=== PATIENT | female | born 1975 ===

== ENCOUNTER 2016-12-06 09:18 | Emergency (ER) | payer OTHER ==
[2016-12-06 09:34] VITALS: O2SAT 98
[2016-12-06 12:01] LABS: BASO % 0.2 % (0.0-2.0); EOS # 0.1 K/uL (0.0-0.7); EOS % 1.1 % (0.0-4.0); HEMOGLOBIN 14.7 g/dL (12.0-16.0); LYMPH # 2.1 K/uL (1.0-4.3); LYMPH % 27.4 % (20.0-40.0); MEAN CORPUSCULAR HEMOGLOBIN 29.2 pg (27.0-31.0); MEAN CORPUSCULAR HGB CONC 33.9 g/dL (33.0-37.0); MEAN PLATELET VOLUME 9.2 fl (7.2-11.7); MONO # 0.6 K/uL (0.0-0.8); MONO % 7.8 % (0.0-10.0); NEUT # 4.9 K/uL (1.8-7.0); NEUT % 63.5 % (50.0-75.0); RBC 5.03 Mil/uL (3.80-5.20); RED CELL DISTRIBUTION WIDTH 13.5 % (11.5-14.5); WHITE BLOOD COUNT 7.7 K/uL (4.8-10.8)
[2016-12-06 12:05] LABS: SQUAMOUS EPITHIAL 4 /hpf (0-5); URINE BILIRUBIN NEGATIVE (NEGATIVE); URINE BLOOD NEGATIVE (NEGATIVE); URINE CLARITY SLIGHTY-CLOUDY (Clear); URINE COLOR YELLOW (YELLOW); URINE GLUCOSE (UA) NEG (Normal); URINE LEUKOCYTE ESTERASE TRACE Leu/uL (Negative); URINE NITRATE NEGATIVE (NEGATIVE); URINE PROTEIN NEGATIVE (NEGATIVE); URINE UROBILINOGEN 0.2-1.0 mg/dL (0.2-1.0)
--- NOTE | 2016-12-06 12:32 | ED PDOC ---
HPI: General Adult Time Seen by Provider: 12/06/16 10:03 Chief Complaint (Nursing): Abdominal Pain History Per: Patient Additional Complaint(s): Pt. states for the past year she's been having intermittent pelvic pain which resolves after taking Motrin. Pt. states this month she had her period 3 times but was only light bleeding. Normally she gets her period monthly lasting for only 4 days. Her LMP was "September." Denies N/V/D, abdominal pain, vaginal discharge, hx of anemia, weakness, dysuria, hematuria. Past Medical History Reviewed: Historical Data, Nursing Documentation, Vital Signs Vital Signs: Last Vital Signs Temp 98 F 12/06/16 16:13 Pulse 74 12/06/16 16:13 Resp 20 12/06/16 16:13 BP 100/70 12/06/16 16:13 Pulse Ox 98 12/06/16 16:13 - Family History Family History: States: No Known Family Hx - Allergies Allergies/Adverse Reactions: Allergies Allergy/AdvReac Type Severity Reaction Status Date / Time No Known Allergies Allergy Verified 12/06/16 09:31 Review of Systems ROS Statement: Except As Marked, All Systems Reviewed And Found Negative Genitourinary Female: Positive for: Pelvic Pain Physical Exam - Physical Exam Appears: Positive for: Well, Non-toxic, No Acute Distress Skin: Positive for: Normal Color, Warm. Negative for: Rash Eye Exam: Positive for: Normal appearance, EOMI, PERRL. Negative for: Scleral icterus Gastrointestinal/Abdominal: Positive for: Normal Exam, Bowel Sounds, Soft. Negative for: Tenderness Back: Positive for: Normal Inspection. Negative for: L CVA Tenderness, R CVA Tenderness Extremity: Positive for: Normal ROM Neurologic/Psych: Positive for: Alert, Oriented. Negative for: Aphasia, Facial Droop - Laboratory Results Result Diagrams: 12/06/16 11:54 12/06/16 11:54 Urine POC: Negative Urine dip results: Positive for: Blood (trace). Negative for: Leukocyte Esterase, Nitrate, Ketones, Glucose, Bilirubin, Protein - ECG O2 Sat by Pulse Oximetry: 98 - Progress ED Course And Treament: Labs ordered. Pelvic US ordered. Toradol 15mg IV ordered. Pelvic US: normal Pelvic exam: flesh colored protrusion coming from L intravaginal wall extending outward; cervix closed and visualized completely without prolapse; no discharge , bleeding, CMT. [facility] cytology technologist present as human resources recruiter during pelvic exam. Upon further questioning, pt. states she's had this mass for the past 20 years and has seen a ARTIST MODEL for it but was told it cannot be removed. This was done through [employer] Analyst Developer [id number]. Pt. instructed to f[facility]u with [facility]. Disposition - Clinical Impression Clinical Impression: Vaginal mass, Dysmenorrhea - Patient ED Disposition Is Patient to be Admitted: No - Disposition Referrals: [facility] [Outside] [facility] [Outside] Disposition: Routine/Home Disposition Time: 17:00 Condition: STABLE Instructions: Dysmenorrhea (ED) Print Language: IRANIAN
[2016-12-06 12:34] LABS: ALB/GLOB RATIO 1.3 (1.0-2.1); ALBUMIN 4.9 g/dL (3.5-5.0); ALT/SGPT 43 U/L (9-52); AST/SGOT 34 U/L (14-36); BLOOD UREA NITROGEN 12 mg/dl (7-17); CALCIUM 9.5 mg/dL (8.4-10.2); GFR AFRICAN-AMERICAN > 60; GFR NON-AFRICAN AMERICAN > 60
--- NOTE | 2016-12-06 14:16 | US ---
HISTORY: Pelvic pain COMPARISON: None available. TECHNIQUE: Transabdominal pelvic ultrasound was performed. FINDINGS: UTERUS: Measures 7.8 x 3.1 x 4.7 cm. Anteverted, normal in size and appearance. No fibroid or other mass lesion seen. ENDOMETRIUM: Measures 6.0 mm in diameter. Unremarkable. CERVIX: No cervical abnormality identified. RIGHT OVARY: Measures 3.0 x 1.7 x 2.7 cm. No solid mass. Normal flow. LEFT OVARY: Measures 2.2 x 1.3 x 1.8 cm. No solid mass. Normal flow. FREE FLUID: No significant free fluid noted. OTHER FINDINGS: None. IMPRESSION: Normal pelvic ultrasound.
[2016-12-06 16:14] VITALS: BP 100/70; PULSE 74; RESP 20; TEMP 98
== END 2016-12-06 16:14 | disposition home or self-care (01) ==
LOC: H.ER 09:18
DX: N98.9 Complication associated with artificial fertilization, unspecified (principal); N94.6 Dysmenorrhea, unspecified